=== PATIENT | female | born 1960 | race Caucasian/White ===

== ENCOUNTER → 2017-12-03 | Outpatient (CLI) | payer BC, OTHER ==
[~2017-12-03] MED LIST: CALCTAB75 PO; LEVO75TA42 PO; LEVO88TA30 PO; TAB-TAB PO; TRAM50TA PO; VITA2000 PO; VITA200C3 PO; VITA200T2 PO
[2017-12-03 09:05] LABS: HEMATOCRIT 43.1 % (35.0-46.0); HEMOGLOBIN 14.5 GM/DL (11.6-15.3); MEAN CELL VOLUME 92.2 FL (80.0-100.0); MEAN CORPUSCULAR HEMOGLOBIN 30.9 PG (27.0-34.0); MEAN CORPUSCULAR HGB CONC 33.6 % (32.0-36.0); MEAN PLATELET VOLUME 8.5 FL (7.0-11.0); PLATELET COUNT 307 TH/MM3 (150-450); RED BLOOD COUNT 4.68 MIL/MM3 (4.00-5.30); RED CELL DISTRIBUTION WIDTH 12.9 % (11.6-17.2); WHITE BLOOD COUNT 7.4 TH/MM3 (4.0-11.0)
[2017-12-03 09:13] LABS: PROTHROMBIN TIME - PATIENT 10.5 SEC (9.8-11.6)
[2017-12-03 09:17] LABS: ALBUMIN 3.8 GM/DL (3.4-5.0); AST (GOT) 17 U/L (15-37); BICARBONATE 27.8 MEQ/L (21.0-32.0); BLOOD UREA NITROGEN 17 MG/DL (7-18); CHLORIDE 104 MEQ/L (98-107); CREATININE 0.85 MG/DL (0.50-1.00); GLOMERULAR FILTRATION RATE 69 ML/MIN (>89); GLUCOSE,FASTING 80 MG/DL (74-99); SODIUM (NA) 140 MEQ/L (136-145)
[2017-12-03 09:20] LABS: ALKALINE PHOSPHATASE 99 U/L (45-117); ALT (GPT) 24 U/L (10-53); TOTAL BILIRUBIN ADULT 0.4 MG/DL (0.2-1.0); TOTAL PROTEIN 7.4 GM/DL (6.4-8.2)
[2017-12-03 09:26] LABS: BACTERIA, URINE OCC /hpf; BILIRUBIN, URINE NEG (NEG); BLOOD, URINE SMALL (NEG); GLUCOSE,URINE NEG (NEG); KETONE, URINE NEG (NEG); MUCUS URINE MOD /lpf (OCC); NITRITE,URINE NEG (NEG); PH, URINE 5.5 (5.0-8.5); URINE COLOR YELLOW (YELLW/STRAW); URINE LEUKOCYTE ESTERASE NEG (NEG)
--- NOTE | 2017-12-03 14:05 | EKG ---
Date Performed: 12/03/2017 Time Performed: 08:21:25 PTAGE: 57 years EKG: SINUS BRADYCARDIA LOW QRS VOLTAGE IN PRECORDIAL LEADS BORDERLINE ECG No significant change from prior electrocardiogram. PREVIOUS TRACING : 09/12/2012 09.25 DOCTOR: Neo Echavarria Interpretating Date/Time 12/03/2017 14:04:29
== END ==
LOC: CPRE 07:44
PROVIDERS: ATTEND Surgery
DX: Z01.810 Encounter for preprocedural cardiovascular examination (principal); Z01.812 Encounter for preprocedural laboratory examination; Z01.818 Encounter for other preprocedural examination; M79.609 Pain in unspecified limb; R82.99 Other abnormal findings in urine; R94.31 Abnormal electrocardiogram [ECG] [EKG]
CPT/HCPCS: 36415; 80053; 81001; 85027; 85610; 85730; 87086; 93005

== ENCOUNTER 2017-12-12 08:00 | Observation (INO) | payer BC, OTHER ==
--- NOTE | 2017-12-05 16:57 | MH ---
cc: Ayaka Chung MD, J Richard R MD DATE OF ADMISSION: 12/12/2017 ADMITTING DIAGNOSIS: Osteoarthritic degeneration of medial compartment, left knee now being admitted for an Bailey medial unicondylar knee arthroplasty of her left knee. HISTORY OF PRESENT ILLNESS: This pleasant 57-year-old female is being admitted today for an Bailey medial unicondylar knee arthroplasty of her left knee due to osteoarthritic degeneration. PAST MEDICAL HISTORY: She has a history of hypothyroidism for which she takes Levoxyl and she also takes Wellbutrin. PAST SURGICAL HISTORY: Includes a right total hip arthroplasty in the past. REVIEW OF SYSTEMS: Noncontributory. FAMILY HISTORY: Noncontributory. SOCIAL HISTORY: She does not smoke, drinks socially. ALLERGIES: MACROLIDE ANTIBIOTICS, NSAIDS AND CEPHALOSPORINS. PHYSICAL EXAMINATION: GENERAL: A 57-year-old female well-developed, well-nourished, and oriented x3 complaining of pain in her left knee. VITAL SIGNS: Blood pressure 118/70, pulse 69 and regular, respirations 16, temperature 98.5, pulse oximetry 98% on room air. HEENT: Eyes: PERRL, EOMI. Ears, nose, mouth clear. NECK: Supple. LUNGS: Clear. HEART: Regular rate. ABDOMEN: Soft, positive bowel sounds, nontender. EXTREMITIES: Reveal the left knee tender with crepitance on range of motion and gentle varus deformity. She is neurovascularly intact to her toes. IMPRESSION: Severe osteoarthritic degeneration of medial compartment, left knee. PLAN: Admission for an Bailey medial unicondylar knee arthroplasty today. The patient given prescription for postoperative pain and anticoagulation control in the office and plans on going home after surgical stay in the hospital. Ayaka Chung MD JRTommy/ , 04:40 PM , 04:55 PM
[~2017-12-12] VITALS: Ht 162.6 cm; Wt 82.3 kg
[~2017-12-12 08:00] MED LIST changes: -CALCTAB75 PO; -LEVO75TA42 PO; -TAB-TAB PO; -VITA200T2 PO
[2017-12-12] MEDS ORDERED: GENTAMICIN SULFATE 80 MG/2 ML VIAL ONE (08:22)
[2017-12-12] MEDS: LACTATED RINGER'S 1000 ML IV PRN (08:40)
[2017-12-12] MEDS ORDERED: VANCOMYCIN 1 GM/200 ML PREMIX IV SCH (08:45)
[2017-12-12] MEDS ORDERED: SODIUM CHLORID 0.9% 500 ML IV PRN (08:45)
[2017-12-12] MEDS ORDERED: CHLORHEXIDINE GLUCONATE 2 % 1 PACK (2 CLOTHS) TOPICAL PRN (08:45)
[2017-12-12] MEDS ORDERED: METOPROLOL TARTRATE 25 MG TAB PO PRN (08:45)
[2017-12-12] MEDS ORDERED: CHLORHEXIDINE GLUCONATE 4% SOLN 120 ML BTL TOPICAL SCH (08:45)
[2017-12-12] MEDS ORDERED: POVIDONE IODINE 5% (ANTISEPSIS KIT) 4 APPLICATIONS EACH NARE PRN (08:45)
[2017-12-12] MEDS ORDERED: TRANEXAMIC ACID INJ 779 MG in SODIUM CHLORIDE 0.9% INJ 100 ML IV SCH ×4 (08:45)
[2017-12-12] MEDS ORDERED: CLINDAMYCIN 900 MG/NS 100 ML IV SCH ×2 (08:45)
[2017-12-12] MEDS ORDERED: SODIUM CHLORIDE 0.9% INJ 100 ML ONE (08:49)
[2017-12-12] MEDS ORDERED: DEXAMETHASONE SOD PHOS 20 MG/5 ML VIAL ONE (08:49)
[2017-12-12] MEDS ORDERED: Post-op Orders (for Pharmacy) XX ONE (09:00)
[2017-12-12] MEDS ORDERED: TRANEXAMIC ACID INJ 0 MG in SODIUM CHLORIDE 0.9% INJ 100 ML IV SCH (09:00)
[2017-12-12] MEDS ORDERED: MORPHINE SULFATE 4 MG/ML INJ IV PUSH PRN (09:00)
[2017-12-12] MEDS ORDERED: BUPIVACAINE LIPOSO PF 1.3% INJ 20 ML, BUPIVACAINE PF 0.25% INJ 20 ML in SODIUM CHLORIDE... P-ARTICULR SCH (09:00)
[2017-12-12] MEDS ORDERED: diphenhydrAMINE HCL 50 MG/ML VIAL IV PUSH PRN (09:00)
[2017-12-12] MEDS ORDERED: NALOXONE HCL 0.4 MG/ML AMP IV PUSH PRN (09:00)
--- NOTE | 2017-12-12 09:00 | HHI.FF ---
Face to Face Verification Diagnosis: (1) Status post left partial knee replacement Physical Therapy Gait training Knee: Total knee, Protocol: Left, Gait training, Full weight bearing Canvas Knee Splint: When in bed & 2 pillows btw thighs Nursing RN: 3 days/week x 2 weeks Dressing Changes: Do not change dressing I have seen patient Balbina Calderon on 12/12/17. My clinical findings support the need for the requested home health care services because: Limited ability to care for self High risk of falls I certify that my clinical findings support that this patient is homebound because: Unsteady gait/balance Ayaka Chung MD Dec 12, 2017 09:00
[2017-12-12] MEDS ORDERED: ADJUSTABLE COMM1 MIS (09:01)
[2017-12-12] MEDS ORDERED: WALKER WHEELS/F1 MIS (09:01)
[2017-12-12 09:36] VITALS: PULSE 63
[2017-12-12] MEDS ORDERED: BUPIVACAINE LIPOSOME PF 1.3% 20 ML VIAL ONE (10:01)
[2017-12-12] MEDS ORDERED: LIDOCAINE HCL 1% PF 5 ML AMPULE ONE (10:02)
[2017-12-12] MEDS ORDERED: BUPIVACAINE/EPINEPHRINE 0.25% PF 10 ML VIAL ONE (10:02)
[2017-12-12] MEDS ORDERED: MIDAZOLAM HCL 5 MG/5 ML VIAL ONE (10:03)
[2017-12-12] MEDS ORDERED: BUPIVACAINE HCL PF 0.25% 30 ML VIAL ONE (10:14)
[2017-12-12] MEDS ORDERED: ceFAZolin INJ 1,000 MG VIAL ONE (11:41)
[2017-12-12] MEDS ORDERED: ONDANSETRON ODT 4 MG TAB PO PRN (12:15)
[2017-12-12] MEDS ORDERED: ACETAMINOPHEN 325 MG TAB PO PRN (12:30)
[2017-12-12] MEDS: VITAMIN E 400 UNIT CAP PO SCH (13:00)
[2017-12-12] MEDS: CHOLECALCIFEROL (VIT D3) 1000 UNIT TAB PO SCH (13:00)
[2017-12-12] MEDS ORDERED: DO NOT ADM ANY ANTICOAGULANT DRUGS PRN (15:08)
--- NOTE | 2017-12-12 15:08 | HHI.PR ---
Immediate Post Op Note Procedure Date: Dec 12, 2017 Pre Op Diagnosis: Osteoarthritic degeneration of medial compartment, left knee Post Op Diagnosis: Osteoarthritic degeneration of medial compartment, left knee Surgeon: Kimmy Chung MD Hand Router Operator(s): Linda TO Procedure: Left unicompartmental knee Arthroplasty Complications: none Estimated blood loss: 200cc Anesthesia: General Drains: None IVF Urinary Output (mLs): 0 (no velasco) Tourniquet time (min at mmHg) 60 mins at 300 mmHg Patient to: PACU Patient Condition: Good Implant/Devices: SEE IMPLANT LOG (if applicable) Date/Time of Procedure: SEE SURGICAL CARE RECORD Linda Boykin Dec 12, 2017 15:08
[2017-12-12] MEDS ORDERED: *morphine SULFATE 4 MG/ML PERIprocedure ONLY ONE ×3 (15:23→15:54)
--- NOTE | 2017-12-12 15:23 | MP ---
cc: Ayaka Chung MD DATE OF OPERATION: 12/12/2017 PREOPERATIVE DIAGNOSIS: Osteoarthritic degeneration of medial compartment, left knee. POSTOPERATIVE DIAGNOSIS: Osteoarthritic degeneration of medial compartment, left knee. SURGERY PERFORMED: Breeding medial unicondylar knee arthroplasty using Biomet Breeding components, size small femur, size C tibia and size 3 floating meniscus bearing with 1 batch of DePuy cement. SURGEON: Ayaka Chung MD BUSINESS CONTINUITY CONSULTANT: YOUSUF Ku ANESTHESIA: General intubation and block. DESCRIPTION OF PROCEDURE: The patient was brought to the operating room and placed on the operating room table in supine position. After successful induction of general anesthesia, the patient's left knee, thigh and leg were prepped and draped in the usual manner and placed in the knee gonzáles. Tourniquet inflated to 300 mmHg pressure after exsanguination of the left lower extremity. A paramedial incision was then made 4 inches in length, starting from the medial side of the patella, down the tibial shaft staying medial to the patellar tendon, carried down through subcutaneous tissues through the deep fascia to expose the distal femur, which was then debrided of tissue to allow the pre-made cutting guide to be snapped into place for the drill holes to be made, followed by using a #0 reamer. Next, the tibia was prepared by removing the rest of the meniscus medial side and using the pre-made jig was stabilized with the pegs. The proximal tibial medial surface was removed using the oscillating saw and the sagittal saw and reciprocating saw. Trials were then inserted, found to track best with a size 3 insert with the small femur and the C tibia after it was reamed to a size 5 peg. All trials removed. The slot made for the tibia. Wound irrigated copiously with antibiotic solution and the actual components cemented in place, first the tibia, then the femur and after cement hardened and excess cement removed, tourniquet deflated, total tourniquet time being 1 hour, 300 mmHg pressure. Meticulous hemostasis achieved and 60 mL of mixture of Exparel, normal saline and 0.25% Marcaine plain instilled around the knee joint for extra pain control. Then, the size 3 meniscal bearing was snapped into place. Full range of motion was appreciated with no instability. After meticulous hemostasis achieved, deep fascia approximated with a running #2 Quill. Subcutaneous tissue approximated using interrupted running 3-0 and 4-0 Monocryl suture, a Prineo dressing and a knee immobilizer. Estimated blood loss 200 mL. Sponge and suture count correct. The patient tolerated the procedure well and left the operating room in satisfactory condition and YOUSUF Ku was present during the entire procedure to include patient positioning and the procedure. The medical necessity of nurse practitioner, assistant loan processor was indicated in this case due to the surgical complexity of the case itself. During the surgical case, the neurosurgical physician assistant was working the back table while my medical surgical tech YOUSUF was directly assisting me. J. MD KENISHA Reyes/LUIS , 02:57 PM , 03:22 PM
--- NOTE | 2017-12-12 15:51 | RADRPT ---
EXAM DATE: 12/12/2017 3:41 PM EDT AGE/SEX: 57 years / Female INDICATIONS: Hardware placement left knee CLINICAL DATA: This is the patient's initial encounter. Patient reports that signs and symptoms have been present for 1 day and indicates a pain score of 0/10. MEDICAL/SURGICAL HISTORY: Arthritis. None. COMPARISON: No prior exams available for comparison. FINDINGS: 2 images from the OR been obtained. There is a left medial hemiarthroplasty in place. The hardware ap pears well placed. There is a mild amount of air in the soft tissues which is an expected postoperati ve finding. CONCLUSION: Good placement of a left medial knee prosthetic components. Electronically signed by: Wilfredo Ellis MD 12/12/2017 3:50 PM EDT
[2017-12-12] MEDS: LACTATED RINGER'S 1000 ML INJ 1,000 ML IV SCH (16:00)
[2017-12-12] MEDS: ACETAMINOPHEN/HYDROcodone 325 MG/7.5 MG TAB PO PRN ×2 (16:53→21:13)
[2017-12-12 19:18] VITALS: BP 123/64; PULSE 77; RESP 18; TEMP 97.8; O2SAT 93
[2017-12-12] MEDS ORDERED: TEMAZEPAM 15 MG CAP PO PRN (21:00)
[2017-12-12] MEDS ORDERED: CLINDAMYCIN INJ 900 MG in SODIUM CHLORIDE 0.9% INJ 100 ML IV SCH (21:00)
[2017-12-12 23:29] VITALS: BP 112/59; PULSE 88; RESP 18; TEMP 98.6; O2SAT 92
[2017-12-13] VITALS (7 sets, daily range): BP systolic 90–113; BP diastolic 49–61; PULSE 61–73; RESP 18; TEMP 97.6–98.2; O2SAT 93–98
[2017-12-13] MEDS: LACTATED RINGER'S 1000 ML INJ 1,000 ML IV SCH (01:00)
[2017-12-13] MEDS: LACTATED RINGER'S 1000 ML IV PRN (03:19)
[2017-12-13] MEDS: CLINDAMYCIN 900 MG/NS PREMIX 50 ML IV SCH ×2 (05:00→13:00)
[2017-12-13] MEDS: ACETAMINOPHEN/HYDROcodone 325 MG/7.5 MG TAB PO PRN ×3 (05:53→14:19)
[2017-12-13] MEDS ORDERED: LEVOTHYROXINE SODIUM 88 MCG TAB PO SCH (06:00)
[2017-12-13 06:16] LABS: HEMATOCRIT 35.9 % (35.0-46.0); HEMOGLOBIN 12.6 GM/DL (11.6-15.3)
[2017-12-13] MEDS: VITAMIN E 400 UNIT CAP PO SCH (08:48)
[2017-12-13] MEDS: CHOLECALCIFEROL (VIT D3) 1000 UNIT TAB PO SCH (08:48)
--- NOTE | 2017-12-13 11:15 | PD.ORT.PN ---
Subjective Subjective Remarks Pt somewhat painful at present. Feels nerve block never worked. Objective Vitals Vital Signs Date Time Temp Pulse Resp B/P (MAP) Pulse Ox O2 Delivery O2 Flow Rate FiO2 12/13/17 08:36 97.8 61 18 99/53 (68) 96 12/13/17 08:25 97 Nasal Cannula 1.00 12/13/17 07:30 97.9 64 18 96/56 (69) 96 12/13/17 06:00 99/53 (68) 12/13/17 03:22 98.2 73 18 90/49 (63) 93 12/12/17 23:29 98.6 88 18 112/59 (76) 92 12/12/17 19:18 97.8 77 18 123/64 (83) 93 12/12/17 18:41 Room Air 12/12/17 16:00 97.9 71 16 116/56 (76) 100 12/12/17 15:45 97.9 82 16 129/66 (87) 100 12/12/17 15:30 97.9 68 16 115/58 (77) 100 Nasal Cannula 2 12/12/17 15:15 97.9 68 16 115/58 (77) 100 Nasal Cannula 2 12/12/17 15:08 97.9 84 16 117/56 (76) 100 Nasal Cannula 2 I/O 12/12/17 12/12/17 12/12/17 12/13/17 12/13/17 12/13/17 07:00 15:00 23:00 07:00 15:00 23:00 Intake Total 1700 ml 1419 ml 50 ml Output Total 200 ml Balance 1500 ml 1419 ml 50 ml Intake Oral 360 ml IV Total 1059 ml 50 ml Other 1700 ml Output Estimated Blood Loss 200 ml # Voids 1 3 # Bowel Movements 0 Result Diagram: 12/13/17 0526 Imaging Last 48 hours Impressions Knee X-Ray 12/12/17 0854 Signed Impressions: CONCLUSION: Good placement of a left medial knee prosthetic components. Objective Remarks Dressing dry and intact. NV intact to toes. Assessment & Plan Ortho Post Op Day #: 1 Problem List: Assessment and Plan PT, pain meds, home this evening if stable. Ayaka Chung MD Dec 13, 2017 11:15
[2017-12-13] MEDS ORDERED: APIXABAN 2.5 MG TABLET PO SCH (14:00)
[2017-12-13] MEDS ORDERED: MULTIVITAMINS/MINERALS THERAPEUTIC TAB PO SCH (21:00)
[2017-12-13] MEDS ORDERED: DOCUSATE SODIUM 100 MG CAP PO SCH (21:00)
[2017-12-14] MEDS ORDERED: BACITRACIN OINT 0.9 GM PKT TOP PRN (10:15)
== END 2017-12-13 16:52 | disposition home health service (06) ==
LOC: HSDC 08:00 → HSDI 08:59 → N06A 16:25
PROVIDERS: ADMIT Surgery; ATTEND Surgery
DX: M17.12 Unilateral primary osteoarthritis, left knee (principal); E03.9 Hypothyroidism, unspecified; Z79.899 Other long term (current) drug therapy; Z96.641 Presence of right artificial hip joint
CPT/HCPCS: 01400; 27446; 73560; 85014; 85018; 86850; 86900; 86901; 94150; 96360; 96361; 96374; 96375; 96376; 97116; 97150; 97161; C9290; G0378; J1100; J1580; J2250; J2270; J3010; J3370; J7120; L1830; C1776; J0690